=== PATIENT | male | born 1970 | race African-American/Black ===

== ENCOUNTER 2018-06-20 00:59 | Emergency (ER) | payer MEDICAID ==
[~2018-06-20] VITALS: Ht 185.4 cm; Wt 110.0 kg
[2018-06-20] MEDS ORDERED: SODIUM CHLORIDE 0.9% 1,000 ML IV ONE (01:48)
[2018-06-20 02:15] LABS: BASOPHILS % 0.7 % (0.0-2.0); EOSINOPHILS % 0.9 % (0.0-5.0); HEMATOCRIT. 38.2 % (42.0-52.0); HEMOGLOBIN. 12.9 g/dL (14.0-18.0); LYMPHOCYTES % 40.4 % (20.0-50.0); MEAN CORPUSCULAR HEMOGLOBIN 28.5 pg (28.0-32.0); MEAN CORPUSCULAR VOLUME 84.3 fL (80.0-94.0); MEAN PLATELET VOLUME 7.8 fl (7.4-10.4); MONOCYTES % 7.7 % (2.0-8.0); NEUTROPHILS % 50.3 % (40.0-76.0); PLATELET 230 x1000/uL (130-400); RED BLOOD CELL COUNT 4.54 mill/uL (4.7-6.1)
[2018-06-20] MEDS ORDERED: HYDROCODONE/ACETAMINOPHEN 10/325MG TABLET PO ONE (02:15)
[2018-06-20 02:16] LABS: CHLORIDE 106 mEq/L (98-107)
[2018-06-20] MEDS ORDERED: IOHEXOL-300 100 ML BOTTLE ONE (03:13)
[2018-06-20 06:16] VITALS: BP 135/72
== END 2018-06-20 06:17 | disposition home or self-care (01) ==
LOC: ER 00:59
DX: R10.31 Right lower quadrant pain (principal); J45.909 Unspecified asthma, uncomplicated; E11.9 Type 2 diabetes mellitus without complications; Z98.890 Other specified postprocedural states; Z88.5 Allergy status to narcotic agent
CPT/HCPCS: 36415; 74177; 80053; 83690; 85025; 99285; J7030; Q9967; Z7610